=== PATIENT | female | born 1955 | race Caucasian/White ===

== ENCOUNTER → 2024-10-18 07:26 | Outpatient (REF) | payer MEDICARE, SELFPAY | LOC: HWWDC 07:26 | PROVIDERS: ATTENDING PHYSICIAN Family Medicine | DX: Z12.31 Encounter for screening mammogram for malignant neoplasm of breast (principal) | CPT/HCPCS: 77063; 77067 ==

== ENCOUNTER → 2025-02-10 07:47 | Outpatient (REF) | payer MEDICARE, SELFPAY | LOC: HWRAD 07:47 | PROVIDERS: ATTENDING PHYSICIAN Family Medicine | DX: R22.2 Localized swelling, mass and lump, trunk (principal) | CPT/HCPCS: 76604 ==

== ENCOUNTER → 2025-10-19 08:25 | Outpatient (REF) | payer MEDICARE, SELFPAY | LOC: HWRAD 08:25 | PROVIDERS: ATTENDING PHYSICIAN Family Medicine | DX: M85.88 Other specified disorders of bone density and structure, other site (principal); Z12.31 Encounter for screening mammogram for malignant neoplasm of breast | CPT/HCPCS: 77063; 77067; 77080 ==